=== PATIENT | female | born 1975 | race Caucasian/White ===

== ENCOUNTER 2017-09-29 13:53 | Emergency (ER) | payer BC ==
--- NOTE | 2017-09-29 15:23 | ED PDOC ---
HPI: Neurologic - General Time Seen by Provider: 09/29/17 15:02 Chief Complaint (Nursing): Seizure Chief Complaint (Provider): Vertigo Source: patient Exam Limitations: no limitations - History of Present Illness Timing/Duration: 1 week Allergies/Adverse Reactions: Allergies No Known Allergies Allergy (Verified 09/29/17 14:03) Home Medications: Ambulatory Orders Meclizine [Meclizine*] 25 mg PO Q6 #30 tab 09/29/17 Additional Complaint(s): Patient is a 42 y/o female with past medical history significant for seizure disorder and post traumatic vertigo, who is followed by neurologist Dr. Montanez. Patient reportedly had 2 seizures last week and was seen by her neurologist, who suggested increase in Keppra dose. Two days ago patient had acute worsening of her vertiginous symptoms. The room spins with any movement of head and patient is also having difficulty ambulating. Denies any ear pain, ear ringing, head injury, or recent cold symptoms. Patients neurologist had called and directed her to go to the ED for CT scan today. On arrival, patient is complaining of severe room-spinning and cannot turn head without worsening symptoms. Neurologist: Matthias Montanez Past Medical History Reviewed: Historical Data, Nursing Documentation, Vital Signs Vital Signs: Last Vital Signs Temp 98.5 F 09/29/17 14:04 Pulse 74 09/29/17 14:04 Resp 20 09/29/17 14:04 BP 129/84 09/29/17 14:04 Pulse Ox 98 09/29/17 14:04 - Medical History PMH: Seizures Denies: Chronic Kidney Disease Other PMH: Post traumatic vertigo - Surgical History Surgical History: No Surg Hx - Family History Family History: States: Unknown Family Hx - Social History Current smoker - smoking cessation education provided: No Alcohol: None Drugs: Denies - Immunization History Hx Tetanus Toxoid Vaccination: No Hx Influenza Vaccination: No Hx Pneumococcal Vaccination: No - Home Medications Home Medications: Ambulatory Orders Medication Instructions Recorded Meclizine [Meclizine*] 25 mg PO Q6 #30 tab 09/29/17 - Allergies Allergies/Adverse Reactions: Allergies Allergy/AdvReac Type Severity Reaction Status Date / Time No Known Allergies Allergy Verified 09/29/17 14:03 Review of Systems ROS Statement: Except As Marked, All Systems Reviewed And Found Negative Constitutional: Negative for: Fever, Chills ENT: Negative for: Ear Pain, Throat Pain, Other (Ear ringing) Respiratory: Negative for: Cough Musculoskeletal: Negative for: Neck Pain Neurological: Positive for: Seizures (x2 last week), Headache, Dizziness (room- spinning). Negative for: Weakness, Numbness Physical Exam - Reviewed Nursing Documentation Reviewed: Yes Vital Signs Reviewed: Yes - Physical Exam Appears: Positive for: Non-toxic, No Acute Distress Head Exam: Positive for: ATRAUMATIC, NORMOCEPHALIC Skin: Positive for: Normal Color, Warm, Dry Eye Exam: Positive for: EOMI, Normal appearance, PERRL Neck: Positive for: Normal (with no meningismus), Painless ROM, Supple Cardiovascular/Chest: Positive for: Regular Rate, Rhythm. Negative for: Murmur Respiratory: Positive for: Normal Breath Sounds. Negative for: Accessory Muscle Use, Respiratory Distress Gastrointestinal/Abdominal: Positive for: Soft. Negative for: Tenderness, Distended Extremity: Positive for: Normal ROM, Other (All motor movements are slow and deliberate; Finger to nose and heel to ac are very slow). Negative for: Tenderness Neurologic/Psych: Positive for: Alert, insurance office supervisor II-XII (intact), Oriented (x3), Gait (steady), Other (Strength is 5/5 throughout) - ECG O2 Sat by Pulse Oximetry: 98 (RA) Pulse Ox Interpretation: Normal Medical Decision Making Medical Decision Making: Impression: Vertigo Time: 15:20 Initial Plan: --Meclizine 25 mg PO --Lamotrigine level drawn --CT Head W/O contrast Scribe Attestation: Documented by Jessica Lisa, acting as a scribe for Jennifer Irene MD. Provider Scribe Attestation: All medical record entries made by the Scribe were at my direction and personally dictated by me. I have reviewed the chart and agree that the record accurately reflects my personal performance of the history, physical exam, medical decision making, and the department course for this patient. I have also personally directed, reviewed, and agree with the discharge instructions and disposition. Disposition - Clinical Impression Clinical Impression: Vertigo - Patient ED Disposition Is Patient to be Admitted: No - Disposition Referrals: Matthias Montanez MD [Staff Provider] - Disposition: Routine/Home Disposition Time: 17:49 Condition: FAIR Prescriptions: Meclizine [Meclizine*] 25 mg PO Q6 #30 tab Instructions: Vertigo (a Type of Dizziness) Forms: [facility] (Mongolian) Print Language: SLOVENIAN
--- NOTE | 2017-09-29 16:42 | CT ---
PROCEDURE: CT HEAD WITHOUT CONTRAST. HISTORY: vertigo COMPARISON: 2009 TECHNIQUE: Axial computed tomography images were obtained through the head/brain without intravenous contrast. Radiation dose: Total exam DLP = 863 mGy-cm. This CT exam was performed using one or more of the following dose reduction techniques: Automated exposure control, adjustment of the mA and/or kV according to patient size, and/or use of iterative reconstruction technique. FINDINGS: HEMORRHAGE: No intracranial hemorrhage. BRAIN: No mass effect or edema. No atrophy or chronic microvascular ischemic changes. VENTRICLES: Unremarkable. No hydrocephalus. CALVARIUM: Unremarkable. PARANASAL SINUSES: Unremarkable as visualized. No significant inflammatory changes. MASTOID AIR CELLS: Unremarkable as visualized. No inflammatory changes. OTHER FINDINGS: None. IMPRESSION: Unremarkable CT scan of the head without contrast. No interval change from prior study.
[2017-09-29 17:49] VITALS: O2SAT 98
[2017-09-29 18:12] VITALS: BP 110/59; PULSE 73; RESP 16; TEMP 98
== END 2017-09-29 18:00 | disposition home or self-care (01) ==
LOC: H.ER 13:53
DX: R42 Dizziness and giddiness (principal); R56.9 Unspecified convulsions